=== PATIENT | female | born 1980 | race Caucasian/White ===

== ENCOUNTER → 2020-12-25 | Outpatient (CLI) | payer MEDICAID ==
--- NOTE | 2020-12-25 11:02 | Diagnostic Imaging Report ---
INDICATION: Fecal incontinence. EXAMINATION: KUB at 10:59 AM. FINDINGS: The bowel gas pattern is normal. There are no pathologic masses. There are some calcified phleboliths in the pelvis. There does not appear to be abnormal fecal retention. IMPRESSION: Unremarkable abdomen. Dictated by: Dictated on workstation # [id number]
== END ==
LOC: RAD FS 10:51
PROVIDERS: ATTEND Nurse Practitioner Family
DX: R15.9 Full incontinence of feces (principal)
CPT/HCPCS: 74018

== ENCOUNTER → 2021-02-14 | Outpatient (CLI) | payer MEDICAID ==
--- NOTE | 2021-02-14 11:37 | Diagnostic Imaging Report ---
PROCEDURE: Pelvic comp/transvaginal sonogram. TECHNIQUE: Complete transabdominal and transvaginal pelvic ultrasound was performed. In addition, limited pelvic Doppler was performed. INDICATION: Heavy menses. FINDINGS: The uterus is retroverted measuring 6.7 x 4.3 x 6.5 cm. The endometrium is 8 mm in thickness. Small echogenic foci are present, consistent with synechiae. No myometrial mass is identified. The right ovary measures 3.1 x 2.6 x 2.2 cm and the left ovary measures 2.7 x 1.2 x 1.4 cm. There is a probable hemorrhagic cyst within the right ovary measuring approximately 13 mm x 16 mm. There is blood flow to both ovaries. A small amount of free fluid is present in the cul-de-sac. IMPRESSION: Small hemorrhagic right ovarian cyst. The study is otherwise unremarkable. Dictated by: Dictated on workstation # [id number]
== END ==
LOC: RAD 10:30
PROVIDERS: ATTEND Obstetrics & Gynecology
DX: N83.201 Unspecified ovarian cyst, right side (principal)
CPT/HCPCS: 76830; 76856

== ENCOUNTER 2021-03-26 05:34 | Outpatient (CLI) | payer MEDICAID ==
[~2021-03-26] VITALS: Ht 154.9 cm; Wt 66.8 kg
== END 2021-03-26 12:19 | disposition home or self-care (01) ==
LOC: PREOP 05:34
PROVIDERS: ATTEND Obstetrics & Gynecology
DX: Z01.818 Encounter for other preprocedural examination (principal)

== ENCOUNTER 2021-04-02 05:51 | Day surgery (SDC) | payer MEDICAID ==
[2021-04-02] VITALS (12 sets, daily range): BP systolic 99–142; BP diastolic 59–80
[~2021-04-02] VITALS: Ht 154.9 cm; Wt 66.8 kg
[2021-04-02] MEDS ORDERED: LACTATED RINGERS 1,000 ML IV ONE (06:15)
[2021-04-02] MEDS ORDERED: metroNIDAZOLE 500MG/100ML IVPB 100 ML IV ONE (06:15)
[2021-04-02] MEDS ORDERED: LACTATED RINGERS 1,000 ML IV PRN (06:15)
[2021-04-02] MEDS ORDERED: ceFAZolin 2 GM IV Premixed 50 ML IV ONE (06:15)
[2021-04-02] MEDS ORDERED: fentaNYL INJ 100 MCG/2 ML AMP ONE ×2 (06:40→06:59)
[2021-04-02 06:44] LABS: BASOPHILS # (AUTO) 0.1 10^3/uL (0.0-0.1); BASOPHILS % (AUTO) 1 % (0-10); EOSINOPHILS # (AUTO) 0.2 10^3/uL (0.0-0.3); EOSINOPHILS % (AUTO) 3 % (0-10); HEMATOCRIT 42 % (35-52); LYMPHOCYTES # (AUTO) 2.6 10^3/uL (1.0-4.0); LYMPHOCYTES % (AUTO) 37 % (12-44); MEAN CORPUSCULAR HEMOGLOBIN 30 pg (25-34); MEAN CORPUSCULAR HGB CONC 34 g/dL (32-36); MEAN CORPUSCULAR VOLUME 89 fL (80-99); MEAN PLATELET VOLUME 11.3 fL (9.0-12.2); MONOCYTES # (AUTO) 0.6 10^3/uL (0.0-1.0); MONOCYTES % (AUTO) 9 % (0-12); NEUTROPHILS # (AUTO) 3.5 10^3/uL (1.8-7.8); NEUTROPHILS % (AUTO) 50 % (42-75); PLATELET COUNT 281 10^3/uL (130-400)
[2021-04-02] MEDS ORDERED: BUPIVACAINE 0.25% 30 ML (SENSORCAINE) VIAL ONE (06:44)
[2021-04-02] MEDS ORDERED: fentaNYL INJ 100 MCG/2 ML AMP IV ONE (06:45)
[2021-04-02] MEDS ORDERED: proPOfol 200 MG/20 ML (DIPRIVAN) VIAL IV ONE (06:59)
[2021-04-02] MEDS ORDERED: LIDOCAINE PF 2% 5 ML (XYLOCAINE) VIAL ONE (06:59)
[2021-04-02] MEDS ORDERED: ONDANSETRON 4 MG/2 ML (SDV) Z0FRAN ONE (06:59)
[2021-04-02] MEDS ORDERED: MIDAZOLAM 2 MG/2 ML (VERSED) VIAL ONE (06:59)
[2021-04-02] MEDS ORDERED: ROCURONIUM 10 MG/ML 5 ML SYRINGE IV ONE (06:59)
--- NOTE | 2021-04-02 07:19 | Progress Note-Pre Operative ---
Pre-Operative Progress Note H&P Reviewed The H&P was reviewed, patient examined and no changes noted. Date Seen by Provider: Apr 02, 2021 Time Seen by Provider: 07:10 Date H&P Reviewed: Apr 02, 2021 Time H&P Reviewed: 07:05 Pre-Operative Diagnosis: CPP, Dysmenorrhea, Dyspareunia GINETTE DELGADO DO Apr 02, 2021 7:19 am
[2021-04-02] MEDS ORDERED: ANTACID SUSP 30 ML UDC (MYLANTA) PO PRN (07:30)
[2021-04-02] MEDS ORDERED: SIMETHICONE 80 MG (MYLICON) CHEW PO PRN (07:30)
[2021-04-02] MEDS ORDERED: NALOXONE 0.4 MG/ML 1 ML (NARCAN) VIAL IV PRN (07:30)
[2021-04-02] MEDS ORDERED: CHLORASEPTIC LOZENGE MM PRN (07:30)
[2021-04-02] MEDS ORDERED: ZOLPIDEM 5 MG (AMBIEN) TAB PO PRN (07:30)
[2021-04-02] MEDS ORDERED: ONDANSETRON 4 MG/2 ML (SDV) Z0FRAN IV PRN ×2 (07:30→14:00)
[2021-04-02] MEDS ORDERED: DOCUSATE SODIUM 100 MG (COLACE) CAP PO PRN (07:30)
--- NOTE | 2021-04-02 07:30 | Discharge Inst-Women's Service ---
Discharge Inst-Women's Serv Depart Medication/Instructions New, Converted or Re-Newed RX: RX on Chart Problems Reviewed?: Yes Consults/Follow Up Additional Follow Up: Yes Orders/Referrals Dr. Sousa in 7-10 days and in 8 weeks Activity Activity: Activity as Tolerated Driving Instructions: No Driving for 1 Week NO SMOKING: NO SMOKING Nothing Inside Vagina: No Douching, No [place], No Tampons Diet Discharge Diet: No Restrictions Symptoms to Report to : Bleeding Excessive, Pain Increased, Fever Over 101 Degrees F, Vaginal Bleeding Increase, Questions/Concerns For Any Problems or Questions: Contact Your Physician Skin/Wound Care Infection Signs and Symptoms: Increased Redness, Foul Odor of Wound, Increased Drainage, Skin Itchy or Has a Rash, Increased Swelling, Temperature Above 101 F Operative Area Clean and Dry: Keep Incision Clean/Dry Stitches/Nura/Dermabond: Dermabond, Care of Stitches Bathing Instructions: GINETTE Garcia DO Apr 02, 2021 7:30 am
[2021-04-02] MEDS ORDERED: SMT80CT PO (07:35)
[2021-04-02] MEDS ORDERED: HYDR-34 PO (07:35)
[2021-04-02] MEDS ORDERED: IBUP-844 PO (07:35)
[2021-04-02] MEDS ORDERED: DCS100C PO (07:35)
[2021-04-02] MEDS ORDERED: HYDROcodone/APAP 7.5 MG/325 MG (LORTAB, LORCET PLUS) TABLET PO PRN (07:45)
[2021-04-02] MEDS ORDERED: KETOROLAC 30 MG/ML VIAL ONE (08:27)
[2021-04-02] MEDS ORDERED: GLYCOPYRROLATE 0.2 MG/ML (ROBINUL) 2 ML VIAL ONE (08:27)
[2021-04-02] MEDS ORDERED: NEOSTIGMINE 3 MG/3 ML VIAL ONE (08:27)
[2021-04-02] MEDS ORDERED: SEVOFLURANE (ULTANE) 15 ML INHAL SOLN ONE (08:49)
[2021-04-02] MEDS: KETOROLAC 30 MG/ML VIAL IVP PRN ×2 (08:50→16:35)
[2021-04-02] MEDS ORDERED: HYDROmorphone 2 MG/ML VIAL (DILAUDID) IV ONE ×2 (09:00→10:30)
[2021-04-02] MEDS ORDERED: PROMETHAZINE INJ 25 MG/ML (PHENERGAN) AMP IVP ONE (09:00)
[2021-04-02] MEDS ORDERED: MEPERIDINE (DEMEROL) INJ 50 MG/ML IVP ONE (09:00)
[2021-04-02] MEDS ORDERED: morphine INJ 10 MG/ML 1ML (SYR OR VIAL) IVP ONE (09:00)
[2021-04-02] MEDS ORDERED: ONDANSETRON 4 MG/2 ML (SDV) Z0FRAN IVP PRN (09:00)
[2021-04-02] MEDS: LACTATED RINGERS 1,000 ML IV SCH ×2 (12:15→16:12)
--- NOTE | 2021-04-02 14:45 | OPERATIVE REPORT ---
DATE OF SERVICE: PREOPERATIVE DIAGNOSES: 1. A 40-year-old female with chronic pelvic pain. 2. Dysmenorrhea. 3. Dyspareunia. POSTOPERATIVE DIAGNOSES: 1. A 40-year-old female with chronic pelvic pain. 2. Dysmenorrhea. 3. Dyspareunia. PROCEDURES PERFORMED: Robotic-assisted total laparoscopic hysterectomy with bilateral salpingectomy. SURGEON: Alexander Delgado DO. TOWER ATTENDANT: Mary Jo Villarreal DNP, who was necessary for manipulation and retraction throughout the procedure. ANESTHESIA: General endotracheal. ESTIMATED BLOOD LOSS: Minimal. URINE OUTPUT: 50 mL clear at the end of the procedure. FLUIDS: 1600 mL lactated Ringer's solution. FINDINGS: A grossly normal appearing external female genitalia with a normal sized uterus that appeared hyperemic in appearance. Bilateral fallopian tubes with evidence of prior ligation and clips placed down them. Grossly normal appearing bilateral ovaries. SPECIMEN SENT: Uterus and bilateral fallopian tubes. INDICATIONS FOR PROCEDURE: This 40-year-old female is a patient, who had sought care with multiple gynecology provider in the past, all of which had exhausted all alternative options for alleviating her chronic pelvic pain. She reported that her pelvic pain got much worse around the time of her period. She was at a point in my office at tears and requesting some pain medication because everything that she had tried cqof-rcb-atcukrv had not helped with her pain. I discussed with the patient multiple alternatives, her ultrasound was negative and she was negative for infectious workup. She wished to proceed with the last alternative as she had tried multiple other ones in the past, which would be hysterectomy. Risk of the procedure was discussed with the patient in detail including risk of bleeding, infection, damage to surrounding structures including, but not limited to bowel, bladder or kidneys, possible need for operation, postoperative complications that could occur, risk from anesthesia, recovery timeframe and even . After everything was discussed with the patient in detail, she was still agreeable to proceed. Consent was obtained in the preoperative area and the patient was taken to the operating room. OPERATIVE REPORT IN DETAIL: Once in the operating room, general anesthesia was found to be adequate. She was placed in a dorsal lithotomy position, prepped and draped in a normal sterile fashion. A timeout was performed. Busch catheter was placed using sterile technique. A weighted speculum was inserted into the patient's vagina. Right angle retractor was used to visualize the cervix. It was grasped at 12 o'clock position using a long Allis clamp and 0 Vicryl suture was then placed at the anterior lip of the cervix, which replaces the clamp as my retraction on the cervix. We then gently sounded the uterine cavity, depth was found to be 7 cm. I placed a Zoey uterine manipulator to a depth of 8 cm with a 4 cm colpotomy ring. Once the Zoey was in place and secured on the uterus, I removed all the other instruments from the patient's vagina, performed a change of gloves, took my attention to the abdomen where I began by placing a Veress needle subcostally at the midclavicular line until intraperitoneal placement was confirmed using a saline drop test. An opening pressure of 2 mmHg was noted, proceeded to max pressure of 15 mmHg using a CO2 insufflator. After this was done, I made an infraumbilical incision after infiltrating the skin of this area with 0.25% Marcaine. This was an 8 mm incision and a da Vero robotic laparoscopic camera trocar was placed in this incision and intraperitoneal placement was confirmed using the da Vero laparoscope. There was no evidence of damage upon my entry site. A brief scan of the upper abdominal anatomy appears to be grossly normal. There was no evidence of damage upon my Veress needle insertion point and at that point, the Veress needle was removed under direct visualization of the laparoscope. I then had the patient placed in a steep Trendelenburg, where I was able to visualize all my pelvic anatomy as defined in my findings above. I placed two lateral trocars approximately 8 cm lateral to my infraumbilical trocar. These were both 8 mm trocars. They were both placed under direct visualization of laparoscope. Once these were both in place, I bring in the da Vero robot and docked it in the appropriate fashion, placing the da Vero vessel sealer in the left hand and monopolar sailaja in the right hand. I performed the following dissection bilaterally starting at the uteroovarian ligament, I sealed and transected using the vessel sealer. I then created a window in the mesosalpinx and took this laterally down the mesosalpinx using the vessel sealer the fallopian tube from its surrounding blood supply. I then grasped the round ligament, which I sealed and transected using vessel sealer. I then grasped the entire broad ligament, which I sealed and transected using vessel sealer. I do this down to the level of the lower uterine segment, at which point I the anterior and posterior leaflets of the broad ligament. The anterior leaflet dissection was taken around the anterior vaginal fornix and posterior leaflets was taken around the posterior vaginal fornix. This allows me to skeletonize the uterine vessels laterally, which I sealed and transected using a vessel sealer. I then created a colpotomy at 12 o'clock position using monopolar sailaja and took this circumferentially around the vaginal fornix amputating the cervix away from the vagina. The entire specimen was then removed through the vagina. I then closed the lateral vaginal apices of the vaginal cuff using 2-0 Vicryl suture in a [id number]-[id number] fashion colposuspending the uterosacral ligaments. I then closed the remainder of the vaginal cuff using 2-0 V-Loc in a running fashion, after which there was no active bleeding noted from any of my dissection planes. I then undocked the da Vero robot and proceeded with the remainder of the case laparoscopically. I copiously irrigated the pelvis using normal saline. Once again, there was no active bleeding noted from any of my dissection planes. I placed Surgiflo hemostatic agent over all my planes of dissection and have the patient taken out of steep Trendelenburg, where I removed the lateral trocars under direct visualization of the laparoscope. The infraumbilical trocar was left in place to release insufflation and to introduce 10 mL of 0.25% Marcaine into the peritoneal cavity for postoperative pain management. I then removed this trocar as well. The skin was reapproximated using 4-0 Monocryl in interrupted subcuticular stitches. Dermabond was applied to the incision and Band-Aids were placed over these as well. Two grams of Ancef and 500 mg of Flagyl were given preoperatively for infection prophylaxis. Job ID: [id number] DocumentID: [id number] Dictated Date: 04/02/2021 08:46:14 Densitometrist Date: 04/02/2021 14:45:01 Dictated By: ALEXANDER DELGADO DO
[2021-04-02] MEDS ORDERED: SCOPOLAMINE 1.5 MG (TRANSDERM-SCOP) PATCH TD ONE (16:00)
[2021-04-03 01:00] VITALS: BP 110/58
[2021-04-03 07:46] VITALS: BP 102/59
[2021-04-03] MEDS: KETOROLAC 30 MG/ML VIAL IVP PRN (07:48)
--- NOTE | 2021-04-03 07:53 | Anesthesia-General Post-Op ---
General Patient Condition Mental Status/LOC: Same as Preop Cardiovascular: Satisfactory Nausea/Vomiting: Absent Respiratory: Satisfactory Pain: Controlled Complications: Absent Post Op Complications Complications None Follow Up Care/Instructions Patient Instructions None needed. Anesthesia/Patient Condition Patient Condition Patient is doing well, no complaints, stable vital signs, no apparent adverse anesthesia problems. No complications reported per nursing. D/C home per [facility] [place] Criteria: Yes YAIR ELIAS CRNA Apr 03, 2021 07:53
[2021-04-07] MEDS ORDERED: IBUPROFEN 600 MG (MOTRIN) TAB PO SCH (12:00)
== END 2021-04-03 11:30 | disposition home or self-care (01) ==
LOC: SDC 05:51 → WS 09:35 → SDC 04-03 11:30
PROVIDERS: ATTEND Obstetrics & Gynecology
DX: D25.1 Intramural leiomyoma of uterus (principal); N94.10 Unspecified dyspareunia; N80.0 Endometriosis of uterus; N83.8 Other noninflammatory disorders of ovary, fallopian tube and broad ligament; Z87.891 Personal history of nicotine dependence; Z98.51 Tubal ligation status; Z98.890 Other specified postprocedural states
CPT/HCPCS: 36415; 84703; 85025; 86850; 86900; 86901; 87081

== ENCOUNTER 2021-11-27 15:41 | Emergency (ER) | payer MEDICAID ==
[~2021-11-27] VITALS: Ht 154 cm; Wt 67.8 kg
[~2021-11-27 15:41] MED LIST: DOCU-239 PO; HYDR-34 PO; IBUP-844 PO; SMT80CT PO
[2021-11-27 15:52] LABS: BASOPHILS # (AUTO) 0.1 10^3/uL (0.0-0.1); BASOPHILS % (AUTO) 1 % (0-10); EOSINOPHILS # (AUTO) 0.1 10^3/uL (0.0-0.3); EOSINOPHILS % (AUTO) 2 % (0-10); HEMATOCRIT 41 % (35-52); HEMOGLOBIN 13.8 g/dL (11.5-16.0); LYMPHOCYTES # (AUTO) 3.1 10^3/uL (1.0-4.0); LYMPHOCYTES % (AUTO) 42 % (12-44); MEAN CORPUSCULAR HEMOGLOBIN 30 pg (25-34); MEAN CORPUSCULAR HGB CONC 34 g/dL (32-36); MEAN CORPUSCULAR VOLUME 88 fL (80-99); MEAN PLATELET VOLUME 10.7 fL (9.0-12.2); MONOCYTES # (AUTO) 0.7 10^3/uL (0.0-1.0); MONOCYTES % (AUTO) 9 % (0-12); NEUTROPHILS # (AUTO) 3.5 10^3/uL (1.8-7.8); NEUTROPHILS % (AUTO) 47 % (42-75); PLATELET COUNT 214 10^3/uL (130-400); WHITE BLOOD COUNT 7.5 10^3/uL (4.3-11.0)
[2021-11-27] MEDS ORDERED: PANTOPRAZOLE 40 MG (PROTONIX) VIAL IV STA (15:53)
[2021-11-27] MEDS ORDERED: ASPIRIN 81 MG CHEW (CHILDREN'S ASA) PO STA (15:53)
--- NOTE | 2021-11-27 16:00 | ED Chest Pain ---
General Stated Complaint: CP Source: patient History of Present Illness Date Seen by Provider: November 27, 2021 Time Seen by Provider: 15:43 Initial Comments 41-year-old female presenting with complaints of chest tightness and some pain. She states this happened at 1 PM but then cleared up on its own. When it happened again although after 3 she decided to come to the emergency department. She did not try taking any medication or anything at home prior to coming. She has no cardiac history. She has no history of medical problems other than she had a hysterectomy last fall. She states that she does not take chronic medications. She denies anything making the pain better or worse. She feels like she has to take a deep breath to get a good amount of breath in her lungs. Timing/Duration: 1-3 hours Severity/Quality: moderate, aching, tightness Location: central, back (upper back) Radiation: no radiation Activities at Onset: rest (resting on couch) Prior CP/Workup: no prior chest pain, no prior cardiac workup ASA po TELEVISION TECHNICIAN: No NTG SL TELEVISION TECHNICIAN: No Associated Symptoms: No abdominal pain, No back pain, No diaphoresis, No dizziness, No edema, No fatigue, No fever/chills, No headache, No heartburn, No nausea/vomiting, No rash, No shortness of breath, No swelling/lump in chest, No syncope, No weakness Allergies and Home Medications Allergies Coded Allergies: amoxicillin (Verified Allergy, Unknown, Hives,VOMITING, , 03/26/21) Patient Home Medication List Home Medication List Reviewed: Yes Docusate Sodium (Dok) 100 Mg Capsule, 100 MG PO BID PRN for CONSTIPATION-1ST LINE Prescribed by: GINTETE DELGADO on 04/02/21 0735 Hydrocodone Bit/Acetaminophen (HYDROcodone/APAP 7.5/325 TAB) 1 Ea Tablet, 1-2 EA PO Q6HR PRN for PAIN-MODERATE (5-7) Prescribed by: GINETTE DELGADO on 04/02/21 0736 Ibuprofen (Ibu) 600 Mg Tablet, 600 MG PO Q6HR Prescribed by: GINETTE DELGADO on 04/02/21 0735 Pantoprazole Sodium (Pantoprazole Sodium) 40 Mg Tablet.dr, 40 MG PO DAILY Prescribed by: KAILEY ARGUELLO on 11/27/21 3636 Simethicone (Mi-Acid) 80 Mg Tab.chew, 40 MG PO TID PRN for INDIGESTION 2ND LINE Prescribed by: GINETTE DELGADO on 04/02/21 0735 Review of Systems Review of Systems Constitutional: No chills, No fever EENTM: No Symptoms Reported Respiratory: See HPI Cardiovascular: See HPI Gastrointestinal: No Symptoms Reported Genitourinary: No Symptoms Reported Musculoskeletal: no symptoms reported Skin: no symptoms reported Psychiatric/Neurological: No Symptoms Reported Endocrine: No Symptoms Reported Past Psoyulw-Qsbsch-Fymvnm Hx Patient Social History Tobacco Use?: No Substance use?: No Alcohol Use?: No Seasonal Allergies Seasonal Allergies: No Past Medical History Surgery/Hospitalization HX: Hysterectomy 2020 Surgeries: Yes (c/s x2, wrist sx, removal ectopic fetus) Tubal Ligation Respiratory: No Cardiac: No Neurological: No Female Reproductive Disorders: Menstrual Problems Genitourinary: No Gastrointestinal: No Musculoskeletal: No Endocrine: No HEENT: No Cancer: No Psychosocial: No Integumentary: No Blood Disorders: No Physical Exam Vital Signs Vital Signs - First Documented 11/27/21 15:56 Temp 36.7 Pulse 84 Resp 16 B/P (MAP) 128/94 (105) Pulse Ox 99 O2 Delivery Room Air Capillary Refill : Height, Weight, BMI Height: '" Weight: lbs. oz. kg; 27.84 BMI Method: General Appearance: No Apparent Distress, WD/WN HEENT: PERRL/EOMI, Pharynx Normal Neck: Full Range of Motion, Normal Inspection, Non Tender, Supple Respiratory: Chest Non Tender, Lungs Clear, Normal Breath Sounds, No Accessory Muscle Use, No Respiratory Distress Cardiovascular: Regular Rate, Rhythm, Normal Peripheral Pulses Gastrointestinal: Normal Bowel Sounds, No Pulsatile Mass, Non Tender, Soft Rectal: Deferred Extremity: Normal Capillary Refill, Normal Inspection, Non Tender, No Calf Tenderness, No Pedal Edema Neurologic/Psychiatric: Alert, Oriented x3, No Motor/Sensory Deficits, Normal Mood/Affect, sustainable agriculture specialist II-XII Norm as Tested Skin: Normal Color, Warm/Dry Progress/Results/Core Measures Results/Orders Lab Results Laboratory Tests Test 11/27/21 15:45 Range/Units White Blood Count 7.5 4.3-11.0 10^3/uL Red Blood Count 4.62 3.80-5.11 10^6/uL Hemoglobin 13.8 11.5-16.0 g/dL Hematocrit 41 35-52 % Mean Corpuscular Volume 88 80-99 fL Mean Corpuscular Hemoglobin 30 25-34 pg Mean Corpuscular Hemoglobin Concent 34 32-36 g/dL Red Cell Distribution Width 13.2 10.0-14.5 % Platelet Count 214 130-400 10^3/uL Mean Platelet Volume 10.7 9.0-12.2 fL Immature Granulocyte % (Auto) 0 % Neutrophils (%) (Auto) 47 42-75 % Lymphocytes (%) (Auto) 42 12-44 % Monocytes (%) (Auto) 9 0-12 % Eosinophils (%) (Auto) 2 0-10 % Basophils (%) (Auto) 1 0-10 % Neutrophils # (Auto) 3.5 1.8-7.8 10^3/uL Lymphocytes # (Auto) 3.1 1.0-4.0 10^3/uL Monocytes # (Auto) 0.7 0.0-1.0 10^3/uL Eosinophils # (Auto) 0.1 0.0-0.3 10^3/uL Basophils # (Auto) 0.1 0.0-0.1 10^3/uL Immature Granulocyte # (Auto) 0.0 0.0-0.1 10^3/uL Prothrombin Time 13.6 12.2-14.7 SEC INR Comment 1.0 0.8-1.4 Activated Partial Thromboplast Time 32 24-35 SEC D-Dimer 0.50 H 0.00-0.49 UG/ML Sodium Level 139 135-145 MMOL/L Potassium Level 3.4 L 3.6-5.0 MMOL/L Chloride Level 104 98-107 MMOL/L Carbon Dioxide Level 23 21-32 MMOL/L Anion Gap 12 5-14 MMOL/L Blood Urea Nitrogen 15 7-18 MG/DL Creatinine 0.71 0.60-1.30 MG/DL Estimat Glomerular Filtration Rate 109 BUN/Creatinine Ratio 21 Glucose Level 92 70-105 MG/DL Calcium Level 9.5 8.5-10.1 MG/DL Corrected Calcium 9.3 8.5-10.1 MG/DL Magnesium Level 1.9 1.6-2.4 MG/DL Total Bilirubin 0.4 0.1-1.0 MG/DL Aspartate Amino Transf (AST/SGOT) 19 5-34 U/L Alanine Aminotransferase (ALT/SGPT) 13 0-55 U/L Alkaline Phosphatase 63 40-136 U/L Myoglobin 33.6 10.0-92.0 NG/ML Troponin I < 0.30 <0.30 NG/ML Pro-B-Type Natriuretic Peptide 99.2 H <75.0 PG/ML Total Protein 7.3 6.4-8.2 GM/DL Albumin 4.2 3.2-4.5 GM/DL Lipase 23 8-78 U/L My Orders Orders - KAILEY ARGUELLO MD Cbc With Automated Diff (11/27/21 15:44) Magnesium (11/27/21 15:44) Ekg Tracing (11/27/21 15:44) Comprehensive Metabolic Panel (11/27/21 15:44) Myoglobin Serum (11/27/21 15:44) Protime With Inr (11/27/21 15:44) Partial Thromboplastin Time (11/27/21 15:44) O2 (11/27/21 15:44) Monitor-Rhythm Ecg Trace Only (11/27/21 15:44) Ed Iv/Invasive Line Start (11/27/21 15:44) Lipase (11/27/21 15:44) Troponin I Fs (11/27/21 15:44) Probnp Fs (11/27/21 15:44) Fibrin Degradation Products (11/27/21 15:44) Chest 1 View Ap/Pa Only (11/27/21 15:53) Pantoprazole Injection (Protonix Injecti (11/27/21 15:53) Aspirin Chewable Tablet (Baby Aspirin Ch (11/27/21 15:53) Vital Signs/I&O 11/27/21 11/27/21 15:56 17:16 Temp 36.7 Pulse 84 64 Resp 16 12 B/P (MAP) 128/94 (105) 128/94 Pulse Ox 99 99 O2 Delivery Room Air Room Air Progress Progress Note #1: Progress Note Check labs and electrocardiogram and chest x-ray. Try giving IV fluids for hydration, aspirin 324 mg chewable x1, Protonix 40 mg IV x1 Progress Note #2: Progress Note ECG does not show acute ST elevation. Will see how she responds to Aspirin and protonix. Wait on labs and CXR. Progress Note #3: Time: 16:46 Progress Note Labs are all stable and no acute significant normality. No acute elevation of her troponin or cardiac enzymes. Chest x-ray is clear without acute process. Electrocardiogram does not show any acute ST elevation or ischemic changes. D- dimer is at the upper limit of normal. Will reassess the patient and see how she is feeling after treatment here in the ED. On recheck patient states that her symptoms had resolved and have not returned since receiving treatment here in the ED. Will discharge to home with a prescription to take proton pump inhibitor. Counseled on follow-up and return precautions. Initial ECG Impression Date: November 27, 2021 Initial ECG Impression Time: 15:49 Initial ECG Rate: 65 Initial ECG Rhythm: Normal Sinus Initial ECG Comparisson: No Previous ECG Available Comment Normal sinus rhythm with a heart rate of 65 bpm. WI interval [address] elevation. QT interval 372 ms with a QTc interval 384 ms. There is no prior tracing available for comparison. Diagnostic Imaging Diagonstic Imaging: Xray Plain Films/CT/US/NM/MRI: chest Comments [facility], [place] NAME: JACK PARRY [facility] REC#: [id number] PT STATUS: REG ER : 1980 PHYSICIAN: KAILEY ARGUELLO MD ADMIT DATE: 11/27/21/ER FS Draft Date of Exam:11/27/21 CHEST 1 VIEW AP/PA ONLY INDICATION: Chest tightness. TIME OF EXAM: 4:01 p.m. No prior studies are available for comparison. FINDINGS: The heart size is normal. The pulmonary vascularity is unremarkable. The lungs are clear. No infiltrate, effusion or pneumothorax is detected. IMPRESSION: No acute cardiopulmonary process is detected. Dictated on workstation # [id number] Dict: 11/27/21 1611 Trans: 11/27/21 1612 [id number] Interpreted by: MERLIN MARIN MD Electronically signed by: Reviewed: Reviewed by Me Departure Impression Primary Impression: Chest tightness Additional Impression: Atypical chest pain Disposition: 01 HOME, SELF-CARE Condition: Stable Departure-Patient Inst. Decision time for Depature: 17:03 Referrals: NO,LOCAL PHYSICIAN (PCP) Primary Care Physician JUAN WINTERS APRN (Family) Primary Care Physician Patient Instructions: Chest Pain, Adult ED, Chest Pain That Is Not Caused by the Heart (DC) Add. Discharge Instructions: Your test do not show signs of a heart attack or acute problem with your heart or lungs. The chest x-ray and electrocardiogram looked good without acute significant changes. Try using a proton pump inhibitor medication such as Prilosec, Prevacid, Nexium tzja-nqw-imismul we did fill the prescription for Protonix to take once a day. Check back with your primary provider for continued concerns. If you have worsening symptoms or changing problems then you could always return and we could reevaluate. Otherwise check back with your regular provider. Scripts Pantoprazole Sodium (Pantoprazole Sodium) 40 Mg Tablet.dr 40 MG PO DAILY for chest tightness/pain for 30 Days, #30 TAB 0 Refills Prov: KAILEY ARGUELLO MD 11/27/21 KAILEY ARGUELLO MD November 27, 2021 16:00
[2021-11-27 16:07] LABS: PROTHROMBIN TIME PATIENT 13.6 SEC (12.2-14.7)
--- NOTE | 2021-11-27 16:13 | Diagnostic Imaging Report ---
INDICATION: Chest tightness. TIME OF EXAM: 4:01 p.m. No prior studies are available for comparison. FINDINGS: The heart size is normal. The pulmonary vascularity is unremarkable. The lungs are clear. No infiltrate, effusion or pneumothorax is detected. IMPRESSION: No acute cardiopulmonary process is detected. Dictated by: Dictated on workstation # [id number]
[2021-11-27 16:23] LABS: FIBRIN DEGRADATION PRODUCTS 0.5 UG/ML (0.00-0.49)
[2021-11-27 16:24] LABS: BILIRUBIN,TOTAL 0.4 MG/DL (0.1-1.0); CALCIUM 9.5 MG/DL (8.5-10.1); CREATININE SERUM 0.71 MG/DL (0.60-1.30); MAGNESIUM 1.9 MG/DL (1.6-2.4); POTASSIUM 3.4 MMOL/L (3.6-5.0)
[2021-11-27 16:25] LABS: ALBUMIN 4.2 GM/DL (3.2-4.5); TOTAL PROTEIN 7.3 GM/DL (6.4-8.2)
[2021-11-27] MEDS ORDERED: PANT40TA52 PO (17:06)
[2021-11-27 17:16] VITALS: BP 128/94
== END 2021-11-27 17:10 | disposition home or self-care (01) ==
LOC: EDUNIT# 15:41 → ER FS 15:42
DX: R07.89 Other chest pain (principal)
CPT/HCPCS: 36415; 71045; 80053; 83690; 83735; 83874; 83880; 84484; 85025; 85379; 85610; 85730; 93005; 93041

== ENCOUNTER → 2022-06-12 | Outpatient (CLI) | payer MEDICAID ==
[~2022-06-12] MED LIST changes: +PANT40TA52 PO
--- NOTE | 2022-06-13 07:48 | Diagnostic Imaging Report ---
HAND 2 VIEW LEFT INDICATION: Follow-up postoperative healing. Carpal tunnel release. COMPARISON: None available. TECHNIQUE: 2 views of the left hand FINDINGS: Surgical changes from prior scaphoid resection. Arthrodesis of the capitate, lunate and triquetrum has been performed. Taft are utilized for fixation and there may be fusion across the joint spaces of these sites. No fracture. Alignment is normal. IMPRESSION: 1. Status post scaphoidectomy. 2. Arthrodesis of the carpus likely has solid fusion across the capital lunate joint. 3. No acute osseous abnormality. Dictated by: Dictated on workstation # [id number]
== END ==
LOC: RAD FS 08:57
PROVIDERS: ATTEND Nurse Practitioner Family
DX: Z98.890 Other specified postprocedural states (principal); Z98.1 Arthrodesis status
CPT/HCPCS: 73120